=== PATIENT | male | born 1960 | race Caucasian/White ===

== ENCOUNTER 2018-10-17 08:35 | Emergency (ER) | payer OTHER ==
[~2018-10-17] VITALS: Ht 180.3 cm; Wt 122.5 kg
[~2018-10-17 08:35] MED LIST: PERCOCET 5-3251 EACH PO; SYMBICORT80 MCG/4.1 INH; TAMSULOSIN HCL0.4 MG PO; ZOFRAN ODT4 MG PO
[2018-10-17] MEDS ORDERED: ASPIR 8181 MG PO (09:04)
[2018-10-17] MEDS ORDERED: IBUPROFEN 600600 M1 PO (11:24)
[2018-10-17] MEDS ORDERED: ACETAMINOPHEN-1 EAC1 PO (11:24)
[2018-10-17] MEDS ORDERED: NORFLEX100 MG PO (11:24)
[2018-10-17 11:44] VITALS: BP 148/84
== END 2018-10-17 11:46 | disposition home or self-care (01) ==
LOC: ER 08:35
DX: S76.111A Strain of right quadriceps muscle, fascia and tendon, initial encounter (principal); F17.210 Nicotine dependence, cigarettes, uncomplicated; J45.909 Unspecified asthma, uncomplicated; Z86.718 Personal history of other venous thrombosis and embolism; W10.8XXA Fall (on) (from) other stairs and steps, initial encounter; Y92.89 Other specified places as the place of occurrence of the external cause; Y93.89 Activity, other specified; Y99.8 Other external cause status